=== PATIENT | female | born 1965 | race Caucasian/White ===

== ENCOUNTER → 2017-07-31 | Day surgery (SDC) | payer OTHER ==
[~2017-07-31] VITALS: Ht 162.6 cm; Wt 87.1 kg
[~2017-07-31] MED LIST: LAMICTAL200 MG PO; RISPERIDONE4 M2 PO; TESSALON PERLE100 MG
[2017-07-31 06:49] VITALS: Ht 162.6 cm; Wt 87.1 kg
[2017-07-31 07:51] LABS: BASOPHIL % 0.5 % (0-2); PLATELET COUNT 341 x10^3mcL (130-400)
[2017-07-31 08:19] LABS: CALCIUM 9.5 mg/dL (8.5-10.1); CHLORIDE SERUM 103 mmol/L (98-107); CREATININE SERUM 0.9 mg/dL (0.6-1.0); GFR1 > 60 mL/min; GLUCOSE SERUM 98 mg/dL (74-106); POTASSIUM SERUM 4.2 mmol/L (3.5-5.1); SODIUM SERUM 137 mmol/L (136-145)
[2017-07-31 11:16] VITALS: BP 117/70
== END | disposition home or self-care (01) ==
LOC: ED 06:41 → DS 07:16
PROVIDERS: Emergency Medicine; Neuromusculoskeletal Medicine, Sports Medicine
PROC: 0PSHXZZ Reposition Right Radius, External Approach (ICD-10-PCS; principal; 2017-07-31 09:00)
DX: S52.501A Unspecified fracture of the lower end of right radius, initial encounter for closed fracture (principal); S52.502D Unspecified fracture of the lower end of left radius, subsequent encounter for closed fracture with routine healing; F31.9 Bipolar disorder, unspecified; W18.30XD Fall on same level, unspecified, subsequent encounter; W18.30XA Fall on same level, unspecified, initial encounter; Y92.9 Unspecified place or not applicable
CPT/HCPCS: J1170; J2405; J2704; J3010; J7120